=== PATIENT | female | born 1990 | race Caucasian/White ===

== ENCOUNTER → 2018-01-24 | Outpatient (CLI) | payer OTHER ==
--- NOTE | 2018-01-24 09:46 | DIAGNOSTIC IMAGING REPORT ---
ABDOMEN LIMITED (US) HISTORY: 27 years-old Female EPIGASTRIC ABDOMINAL PAIN acute epigastric and right upper quadrant abdominal pain COMPARISON: None available TECHNIQUE: Multiple real-time sonographic images of the abdominal right upper quadrant were obtained assessing grayscale appearance and color flow FINDINGS: Imaged pancreas is unremarkable. The liver is within normal limits without focal mass or intrahepatic biliary ductal dilation. Imaged right kidney is unremarkable without hydronephrosis. Prior cholecystectomy. Common bile duct is normal, 4 mm. No focal abnormality seen within the area of concern within the periumbilical tissues. IMPRESSION: 1. Prior cholecystectomy. 2. No biliary ductal dilation. The above report was generated using voice recognition software. It may contain grammatical, syntax or spelling errors. Electronically signed by: Olayinka Martin M.D. 01/24/2018 9:44 AM Dictated Date/Time: 01/24/2018 9:43 AM
== END | disposition home or self-care (01) ==
LOC: C.ULTR 09:11
PROVIDERS: ATTEND Nurse Practitioner Family
DX: R10.13 Epigastric pain (principal); Z90.49 Acquired absence of other specified parts of digestive tract